=== PATIENT | female | born 1990 | race Caucasian/White ===

== ENCOUNTER → 2019-01-06 | Outpatient (CLI) | payer OTHER ==
--- NOTE | 2019-01-07 07:43 | REP ---
REASON: Cough. FINDINGS: The superior mediastinal structures are midline. The cardiac silhouette is unremarkable in size, shape, and position. The diaphragmatic surfaces of the lungs are regular, and the costophrenic angles are clear. The pulmonary brannon are clear. The imaged osseous structures are intact. IMPRESSION: There is no acute cardiopulmonary disease. Electronically Signed by Abdirizak Mix DO 01/07/2019 12:08 P
== END ==
LOC: M LRY 15:34
PROVIDERS: ATTEND Nurse Practitioner Family
DX: R06.01 Orthopnea (principal)
CPT/HCPCS: 71046; G0463

== ENCOUNTER → 2019-11-14 | Outpatient (CLI) | payer OTHER ==
[~2019-11-14] MED LIST: HYDR-643 PO; LINZ290C PO
[2019-11-14 16:56] LABS: ALBUMIN 3.9 GM/DL (3.2-5.2); ALT/SGPT 18 U/L (12-78); BILIRUBIN,TOTAL 0.4 MG/DL (0.2-1.0); BLOOD UREA NITROGEN 12 MG/DL (7-18); CALCIUM LEVEL 9.1 MG/DL (8.5-10.1); CARBON DIOXIDE LEVEL 23 MEQ/L (21-32); CHLORIDE LEVEL 110 MEQ/L (98-107); GLOMERULAR FILTRATION RATE > 60.0 (>60); GLUCOSE, FASTING 83 MG/DL (70-100); SODIUM LEVEL 140 MEQ/L (136-145); TOTAL PROTEIN 6.7 GM/DL (6.4-8.2)
== END ==
LOC: M WUC 12:02
PROVIDERS: ATTEND Family Medicine
DX: E66.9 Obesity, unspecified (principal)

== ENCOUNTER 2019-11-29 10:09 | Emergency (ER) | payer OTHER ==
[~2019-11-29] VITALS: Ht 160 cm; Wt 92.6 kg
[2019-11-29] MEDS ORDERED: HYDR-643 PO (10:21)
[2019-11-29] MEDS ORDERED: LINZ290C PO (10:21)
[2019-11-29 10:57] LABS: HEMATOCRIT 40.5 % (36.0-47.0); HEMOGLOBIN 13.8 g/dl (12.0-15.5); MEAN CORPUSCULAR HEMOGLOBIN 31.1 pg (27.0-33.0); MEAN CORPUSCULAR HGB CONC 34.1 g/dl (32.0-36.5); MEAN CORPUSCULAR VOLUME 91.2 fl (80.0-96.0); PLATELET COUNT, AUTOMATED 283 10^3/uL (150-450); RED BLOOD COUNT 4.44 10^6/uL (4.00-5.40); WHITE BLOOD COUNT 6.8 10^3/uL (4.0-10.0)
[2019-11-29 11:29] LABS: AMPHETAMINES LEVEL URINE NEGATIVE (NEGATIVE); BARBITURATES URINE NEGATIVE (NEGATIVE); BENZODIAZEPINES URINE NEGATIVE (NEGATIVE); CANNABINOIDS URINE NEGATIVE (NEGATIVE); COCAINE METABOLITE URINE NEGATIVE (NEGATIVE); METHADONE URINE NEGATIVE (NEGATIVE); OPIATES URINE NEGATIVE (NEGATIVE); PHENCYCLIDINE URINE NEGATIVE (NEGATIVE)
[2019-11-29 11:30] LABS: HCG, SERUM QUALITATIVE NEGATIVE (NEGATIVE)
[2019-11-29 11:38] LABS: ALBUMIN 4.2 GM/DL (3.2-5.2); ALT/SGPT 16 U/L (12-78); BILIRUBIN,DIRECT 0.1 MG/DL (0.0-0.2); BILIRUBIN,TOTAL 0.4 MG/DL (0.2-1.0); BLOOD UREA NITROGEN 10 MG/DL (7-18); CALCIUM LEVEL 9.3 MG/DL (8.5-10.1); CARBON DIOXIDE LEVEL 26 MEQ/L (21-32); CHLORIDE LEVEL 108 MEQ/L (98-107); CREATININE FOR GFR 0.79 MG/DL (0.55-1.30); GLOMERULAR FILTRATION RATE > 60.0 (>60); GLUCOSE, FASTING 92 MG/DL (70-100); POTASSIUM SERUM 4.1 MEQ/L (3.5-5.1); SODIUM LEVEL 140 MEQ/L (136-145)
--- NOTE | 2019-11-29 12:26 | ECGEPIP ---
[facility] Test Date: 2019-11-29 Pat Name: GLORIA CARRILLO Department: Room: - Gender: Female Vet Assistant: DENY : 1990 Requested By: Amanda Berg Order Number: [id number] Reading MD: Vilma Walter Measurements Intervals [place] Rate: 94 P: 63 NM: 146 QRS: 76 QRSD: 92 T: 38 QT: 349 QTc: 437 Interpretive Statements SINUS RHYTHM NONSPECIFIC T-WAVE ABNORMALITY Electronically Signed on 11-29-2019 12:26:08 EDT by Vilma Walter
--- NOTE | 2019-11-29 12:29 | REPVR ---
PROCEDURE INFORMATION: Exam: XR Chest, 2 Views Exam date and time: 11/29/2019 12:18 PM Age: 29 years old Clinical indication: Chest pain; Additional info: Cp TECHNIQUE: Imaging protocol: XR of the chest Views: 2 views. COMPARISON: CR CHEST 2 VIEW 01/06/2019 3:37 PM FINDINGS: Lungs: No acute airspace disease. Pleural space: No pleural effusion. Heart/Mediastinum: No cardiomegaly. Bones/joints: Unremarkable. IMPRESSION: No acute airspace or pleural disease. Electronically signed by: Isacc Marlow On 11/29/2019 12:29:17 PM
--- NOTE | 2019-11-29 12:30 | REPVR ---
PROCEDURE INFORMATION: Exam: XR Soft Tissue Neck Exam date and time: 11/29/2019 12:18 PM Age: 29 years old Clinical indication: Neck pain; Additional info: Cp TECHNIQUE: Imaging protocol: XR of the soft tissues of the neck. COMPARISON: No relevant prior studies available. FINDINGS: Airway: Normal configuration of the airway. Soft tissues: Unremarkable soft tissues. Bones/joints: Diminished cervical lordosis. IMPRESSION: Diminished cervical lordosis. Electronically signed by: Isacc Marlow On 11/29/2019 12:30:02 PM
[2019-11-29 13:05] VITALS: BP 145/77
== END 2019-11-29 13:08 | disposition home or self-care (01) ==
LOC: M ED 10:09
DX: F41.9 Anxiety disorder, unspecified (principal); F32.9 Major depressive disorder, single episode, unspecified; F17.290 Nicotine dependence, other tobacco product, uncomplicated; Z79.899 Other long term (current) drug therapy; Z88.8 Allergy status to other drugs, medicaments and biological substances

== ENCOUNTER → 2019-12-16 | Outpatient (CLI) | payer OTHER ==
--- NOTE | 2019-12-16 19:42 | REP ---
INDICATION: ACUTE BRONCHITIS. COMPARISON: 11/29/2019, 01/06/2019. TECHNIQUE: Two-view chest FINDINGS: Of the lung brannon are well inflated. The CP angles are sharply defined without evidence for effusion. There is no lateral pleural thickening or apical scarring I see no dense consolidation or parenchymal lung mass. A few cuffed bronchi are seen on the lateral view may reflect some mild bronchitis. Heart, mediastinal and hilar contours are normal. The aorta and airway are intact. Bony thorax without focal lesion. No free air under the diaphragm. IMPRESSION: 1. Some minor perihilar peribronchial thickening may reflect some bronchitis or reactive airway disease. There is no dense consolidation, pleural effusion or other parenchymal finding. 2. Heart mediastinal hilar contours are normal. No vascular redistribution or widening of the mediastinum. 3. Bony thorax unremarkable and no free air under the diaphragm <Electronically signed by Brent Jeffery > 12/16/19 193
== END ==
LOC: M WUC 19:21
PROVIDERS: ATTEND Physician Assistant
DX: J20.9 Acute bronchitis, unspecified (principal)